=== PATIENT | female | born 1955 | race Two or more races ===

== ENCOUNTER 2023-07-25 12:31 | Inpatient (IN) | payer OTHER ==
[~2023-07-25] VITALS: Ht 152.4 cm; Wt 65.8 kg
[2023-07-25] MEDS ORDERED: LOSARTAN-HCTZ1 EAC1 PO (12:44)
[2023-07-25] MEDS ORDERED: ATORVASTATIN CA20 MG PO (13:08)
[2023-07-25 13:52] LABS: HEMATOCRIT 40.3 % (36.0-45.00); HEMOGLOBIN 13.5 g/dL (12.0-15.00); MEAN CELL VOLUME 90.5 fL (80.00-100.00); MEAN CORPUSCULAR HEMOGLOBIN 30.3 pg (27.00-32.0); MEAN CORPUSCULAR HGB CONC 33.5 g/dl (32.0-36.0); PLATELET COUNT 304 K/uL (150-450); RED BLOOD COUNT 4.46 M/uL (4.00-6.00); RED CELL DISTRIBUTION WIDTH 14.1 % (11.5-14.5)
[2023-07-25 14:11] LABS: INR 1.02; PARTIAL THROMBOPLASTIN TIME 27.1 SECONDS (22.0-34.0)
[2023-07-25 14:17] LABS: ALBUMIN 3.3 gm/dL (3.4-5.0); BILIRUBIN TOTAL 0.51 mg/dL (0.3-1.2); CALCIUM 10.2 mg/dL (8.5-10.1); CREATININE SERUM 1.13 mg/dL (0.55-1.02); GFR 48.17; POTASSIUM 3.65 mEq/L (3.5-5.1); TOTAL PROTEIN 8.3 gm/dL (6.4-8.2)
[2023-07-25 14:20] LABS: PROTHROMBIN TIME 10.7 SECONDS (9.0-11.5)
[2023-07-25 15:09] LABS: PH,URINE 6.5 (5.0-8.0); URINE APPEARANCE Clear; URINE BILIRRUBIN Negative (NEGATIVE); URINE BLOOD Moderate; URINE COLOR Yellow; URINE GLUCOSE Negative (NEGATIVE); URINE LEUKOCYTE Trace; URINE NITRATE Negative; URINE PROTEIN Negative (NEGATIVE); URINE UROBILINOGEN 0.2 E.U./dl
[2023-07-25 15:13] LABS: URINE BACTERIA 6.2 uL (0.0-1933); URINE EPITHELIAL CELLS 3.2 uL (0.0-38.8); URINE RBC 208.6 uL (0.0-20.8); URINE WBC 7.2 uL (0.0-23.2)
[2023-07-26 00:52] LABS: POLYMORPHONUCLEAR 93 %; SYNOVIAL FLUID APPEARANCE HAZY; SYNOVIAL FLUID COLOR YELLOW
[2023-07-26 01:02] LABS: MONONUCLEAR 7 %
[2023-07-26 04:32] LABS: C-REACTIVE PROTEIN 23.2 MG/DL (0.00-0.29); CALCIUM 8.8 mg/dL (8.5-10.1); CREATININE SERUM 0.89 mg/dL (0.55-1.02); GFR 63.46; POTASSIUM 3.45 mEq/L (3.5-5.1)
[2023-07-27 06:47] LABS: HEMATOCRIT 34.9 % (36.0-45.00); HEMOGLOBIN 11.9 g/dL (12.0-15.00); MEAN CELL VOLUME 89.6 fL (80.00-100.00); MEAN CORPUSCULAR HEMOGLOBIN 30.5 pg (27.00-32.0); MEAN CORPUSCULAR HGB CONC 34.1 g/dl (32.0-36.0); PLATELET COUNT 309 K/uL (150-450); RED CELL DISTRIBUTION WIDTH 13.9 % (11.5-14.5)
[2023-07-27 07:17] LABS: ALBUMIN 2.4 gm/dL (3.4-5.0); BILIRUBIN TOTAL 0.44 mg/dL (0.3-1.2); CALCIUM 8.8 mg/dL (8.5-10.1); CREATININE SERUM 0.74 mg/dL (0.55-1.02); GFR 78.52; GLOBULINA 3.2 G/DL (2.4-3.5); MAGNESIUM 2.1 mg/dL (1.8-2.4); PHOSPHOROUS 3.3 mg/dL (2.5-4.9); POTASSIUM 3.84 mEq/L (3.5-5.1); TOTAL PROTEIN 5.6 gm/dL (6.4-8.2)
[2023-07-27 07:59] LABS: C-REACTIVE PROTEIN 19.5 MG/DL (0.00-0.29)
[2023-07-30 09:41] LABS: HEMATOCRIT 34.8 % (36.0-45.00); HEMOGLOBIN 11.9 g/dL (12.0-15.00); MEAN CORPUSCULAR HEMOGLOBIN 30.2 pg (27.00-32.0); MEAN CORPUSCULAR HGB CONC 34.3 g/dl (32.0-36.0); PLATELET COUNT 475 K/uL (150-450); RED BLOOD COUNT 3.96 M/uL (4.00-6.00); RED CELL DISTRIBUTION WIDTH 14.1 % (11.5-14.5)
[2023-07-30 09:55] LABS: ERYTHROCYTE SEDIMENTATION RATE > 130 mm/hr
[2023-07-30 10:05] LABS: ALBUMIN 2.7 gm/dL (3.4-5.0); BILIRUBIN TOTAL 0.28 mg/dL (0.3-1.2); CALCIUM 9.3 mg/dL (8.5-10.1); CREATININE SERUM 0.87 mg/dL (0.55-1.02); GFR 65.14; GLOBULINA 3.9 G/DL (2.4-3.5); PHOSPHOROUS 3.3 mg/dL (2.5-4.9); POTASSIUM 3.95 mEq/L (3.5-5.1); TOTAL PROTEIN 6.6 gm/dL (6.4-8.2)
[2023-07-30 10:46] LABS: C-REACTIVE PROTEIN 9.07 MG/DL (0.00-0.29)
== END 2023-07-31 14:35 | disposition home or self-care (01) | DRG 488 ==
LOC: ER 12:31 → SURH 18:04
PROVIDERS: General Practice; Internal Medicine Infectious Disease; Orthopaedic Surgery; ADMIT Internal Medicine; ATTEND Internal Medicine
PROC: 0SBD4ZZ Excision of Left Knee Joint, Percutaneous Endoscopic Approach (ICD-10-PCS; principal; 2023-07-25 18:00)
DX: M65.862 Other synovitis and tenosynovitis, left lower leg (principal); L03.116 Cellulitis of left lower limb; T81.31XA Disruption of external operation (surgical) wound, not elsewhere classified, initial encounter; I10 Essential (primary) hypertension; B95.61 Methicillin susceptible Staphylococcus aureus infection as the cause of diseases classified elsewhere